=== PATIENT | male | born 1965 | race American Indian/Alaskan Native ===

== ENCOUNTER 2021-03-09 01:07 | Emergency (ER) | payer MEDICARE ==
[2021-03-09 02:26] VITALS: BP 186/99
[2021-03-09] MEDS ORDERED: AMOXICILLIN/K CLAV 875/125MG TAB PO ONE (04:39)
[2021-03-09] MEDS ORDERED: IBUPROFEN 600 MG TAB PO ONE (04:39)
[2021-03-09] MEDS ORDERED: HYDROcodone/ACETAMINOPHEN 7.5-325MG TAB PO ONE (04:39)
[2021-03-09] MEDS ORDERED: ONDANSETRON 4 MG ODT TAB PO ONE (04:40)
--- NOTE | 2021-03-09 04:47 | Emergency Department Report ---
ED General Adult HPI - General Chief complaint: Dental/Oral Stated complaint: TOOTH HAS JAW SWOLLEN Source: patient Mode of arrival: Ambulatory Limitations: No Limitations - History of Present Illness Initial comments: Patient is a 55-year-old -[place] male with a history of yic-qvjyfsa-mpzdueyoa diabetes who presents to the ED with complaint of acute onset persistent severe nontraumatic right mandibular pain and swelling with severe painful right mandibular premolar molar toothache for the last 2 days. Patient states that he has been taking [id number]-ddl-[id number] medications with no relief. Patient states that the swelling got worse in the last 8 hours. Patient denies fever, chills, nausea, vomiting, dizziness, syncope, sore throat, traumatic injury, ear pain, change in vision, neck pain, chest pain or shortness of breath, or seizures and palpitations. MD Complaint: Swollen, right mandibular gingiva with severe right mandibular toothache -: Sudden, days(s) (2) Location: mouth (Right mandibular gingiva) Radiation: non-radiation Severity scale (0 -10): 8 Quality: aching, sharp Consistency: constant Improves with: none Worsens with: eating Associated Symptoms: denies other symptoms. denies: confusion, chest pain, cough, diaphoresis, fever/chills, headaches, loss of appetite, malaise, nausea/vomiting, rash, seizure, shortness of breath, syncope Treatments Prior to Arrival: none - Related Data Previous Rx's Medication Instructions Recorded Last Taken Type Acetaminophen/Codeine [Tylenol 1 tab PO Q6H PRN #12 tab 03/09/21 Unknown Rx /Codeine # 3 tab] Clindamycin [Clindamycin CAP] 300 mg PO Q8HR #60 capsule 03/09/21 Unknown Rx Ketorolac [Toradol] 10 mg PO Q8H PRN #20 tablet 03/09/21 Unknown Rx Allergies Allergy/AdvReac Type Severity Reaction Status Date / Time No Known Allergies Allergy Unverified 03/09/21 02:02 ED Review of Systems ROS: Stated complaint: TOOTH HAS JAW SWOLLEN Other details as noted in HPI Constitutional: denies: chills, fever Eyes: denies: eye pain, eye discharge, vision change ENT: dental pain (Swelling, painful right mandibular premolar and molar toothache with swollen gums). denies: ear pain, throat pain Respiratory: denies: cough, shortness of breath, wheezing Cardiovascular: denies: chest pain, palpitations Endocrine: no symptoms reported Gastrointestinal: denies: abdominal pain, nausea, diarrhea Genitourinary: denies: urgency, dysuria Musculoskeletal: denies: back pain, joint swelling, arthralgia Skin: denies: rash, lesions Neurological: denies: headache, weakness, paresthesias Psychiatric: denies: anxiety, depression Hematological/Lymphatic: denies: easy bleeding, easy bruising ED Past Medical Hx - Past Medical History Previous Medical History?: Yes Hx Diabetes: Yes - Surgical History Past Surgical History?: No - Medications Home Medications: Home Medications Medication Instructions Recorded Confirmed Last Taken Type Acetaminophen/Codeine [Tylenol 1 tab PO Q6H PRN #12 tab 03/09/21 Unknown Rx /Codeine # 3 tab] Clindamycin [Clindamycin CAP] 300 mg PO Q8HR #60 capsule 03/09/21 Unknown Rx Ketorolac [Toradol] 10 mg PO Q8H PRN #20 tablet 03/09/21 Unknown Rx ED Physical Exam - General Limitations: No Limitations General appearance: alert, in no apparent distress - Head Head exam: Present: atraumatic, normocephalic, normal inspection - Eye Eye exam: Present: normal appearance, PERRL, EOMI Pupils: Present: normal accommodation - ENT ENT exam: Present: mucous membranes moist, TM's normal bilaterally, normal external ear exam, other (Severely tender right mandibular premolar and molar teeth; grossly swollen right mandibular gingiva with tenderness) - Neck Neck exam: Present: normal inspection, full ROM - Respiratory Respiratory exam: Present: normal lung sounds bilaterally. Absent: respiratory distress, wheezes, rales, rhonchi, chest wall tenderness, accessory muscle use, decreased breath sounds - Cardiovascular Cardiovascular Exam: Present: regular rate, normal rhythm, normal heart sounds. Absent: systolic murmur, diastolic murmur, rubs, gallop - GI/Abdominal GI/Abdominal exam: Present: soft, normal bowel sounds. Absent: tenderness, guarding, rebound, hyperactive bowel sounds, hypoactive bowel sounds, organomegaly - Extremities Exam Extremities exam: Present: normal inspection, full ROM, normal capillary refill - Back Exam Back exam: Present: normal inspection, full ROM. Absent: tenderness, CVA tenderness (R), CVA tenderness (L), muscle spasm, paraspinal tenderness, vertebral tenderness, rash noted - Neurological Exam Neurological exam: Present: alert, oriented X3, CN II-XII intact, normal gait, reflexes normal - Psychiatric Psychiatric exam: Present: normal affect, normal mood - Skin Skin exam: Present: warm, dry, intact, normal color. Absent: rash ED Course Vital Signs 03/09/21 02:05 Temperature 98.5 F Pulse Rate 94 H Respiratory 18 Rate Blood Pressure 186/99 O2 Sat by Pulse 98 Oximetry ED Medical Decision Making - Medical Decision Making This is a 55-year-old -[place] male with a history of [id number]-[id number] diabetes who presents to the ED with complaint of acute onset persistent severe nontraumatic right mandibular pain and swelling with severe painful right mandibular premolar molar toothache for the last 2 days. Patient states that he has been taking [id number] medications with no rel ief. Patient states that the swelling got worse in the last 8 hours. In the ED, patient is alert and oriented x3 and is not in any distress. Patient was treated for pain in the ED and also given initial oral antibiotics. On reevaluation, patient's pain is well controlled medication. Patient will discharge home on pain medications and antibiotics and advised to follow-up with his primary care physician or dentist in 7 to 10 days for reevaluation or return to the ED immediately if symptoms get worse. - Differential Diagnosis Dental abscess; gingivitis; dental caries Critical care attestation.: If time is entered above; I have spent that time in minutes in the direct care of this critically ill patient, excluding procedure time. ED Disposition Clinical Impression: Acute gingivitis, Dental abscess, Dental caries Disposition: 01 HOME / SELF CARE / HOMELESS Is pt being admited?: No Does the pt Need Aspirin: No Condition: Stable Instructions: Dental Abscess, [id number], Trench Mouth Additional Instructions: Take medications with food, drink plenty of fluids and follow-up with your primary care physician or dentist in 7 to 10 days for reevaluation. Return to the ED immediately if symptoms get worse. Prescriptions: Clindamycin [Clindamycin CAP] 300 mg PO Q8HR #60 capsule Ketorolac [Toradol] 10 mg PO Q8H PRN #20 tablet PRN Reason: Pain Acetaminophen/Codeine [Tylenol /Codeine # 3 tab] 1 tab PO Q6H PRN #12 tab PRN Reason: Pain , Severe (7-10) Referrals: [facility] [Outside] - 7-10 days Forms: Work/School Release Form(ED) Time of Disposition: 04:48 Print Language: HUNGARIAN
== END 2021-03-09 05:43 | disposition home or self-care (01) ==
LOC: ED 01:07
DX: K05.00 Acute gingivitis, plaque induced (principal); K04.7 Periapical abscess without sinus; K02.9 Dental caries, unspecified; E11.9 Type 2 diabetes mellitus without complications; Z79.899 Other long term (current) drug therapy
CPT/HCPCS: 99282; Q0162